=== PATIENT | female | born 1930 | race Caucasian/White ===

== ENCOUNTER → 2017-01-12 | Outpatient (CLI) | payer MEDICARE, OTHER | END | disposition home or self-care (01) | LOC: RAD 13:24 | PROVIDERS: ATTEND Neurological Surgery | DX: S32.10XA Unspecified fracture of sacrum, initial encounter for closed fracture (principal); M48.04 Spinal stenosis, thoracic region; M40.294 Other kyphosis, thoracic region; Z98.1 Arthrodesis status; X58.XXXA Exposure to other specified factors, initial encounter; Y93.89 Activity, other specified; Y92.89 Other specified places as the place of occurrence of the external cause; Y99.2 Volunteer activity | CPT/HCPCS: 72072; 72082 ==